=== PATIENT | female | born 1995 | race Caucasian/White ===

== ENCOUNTER 2019-01-12 18:06 | Emergency (ER) | payer OTHER ==
[~2019-01-12] VITALS: Ht 162.6 cm; Wt 61.7 kg
[2019-01-12 18:36] VITALS: BP 118/73; Ht 162.6 cm; Wt 61.7 kg
== END 2019-01-12 20:43 | disposition home or self-care (01) ==
LOC: ED 18:06
DX: R05 Cough (principal); R09.81 Nasal congestion; R07.1 Chest pain on breathing

== ENCOUNTER 2019-03-06 21:18 | Emergency (ER) | payer OTHER ==
[~2019-03-06] VITALS: Ht 160 cm; Wt 67.1 kg
[2019-03-06 21:36] VITALS: Ht 160 cm; Wt 67.1 kg
[2019-03-06 23:40] VITALS: BP 116/68
== END 2019-03-06 23:40 | disposition home or self-care (01) ==
LOC: ED 21:18
DX: S63.613A Unspecified sprain of left middle finger, initial encounter (principal); X58.XXXA Exposure to other specified factors, initial encounter; Y93.89 Activity, other specified; Y92.89 Other specified places as the place of occurrence of the external cause; Y99.8 Other external cause status
CPT/HCPCS: A4570; J7030

== ENCOUNTER 2019-06-05 18:17 | Emergency (ER) | payer OTHER ==
[~2019-06-05] VITALS: Ht 162.6 cm; Wt 65.3 kg
[2019-06-05 18:27] VITALS: BP 121/70; Ht 162.6 cm; Wt 65.3 kg
== END 2019-06-05 20:15 | disposition home or self-care (01) ==
LOC: ED 18:17
DX: O99.611 Diseases of the digestive system complicating pregnancy, first trimester (principal); K92.9 Disease of digestive system, unspecified; R19.7 Diarrhea, unspecified; Z3A.01 Less than 8 weeks gestation of pregnancy; Z90.49 Acquired absence of other specified parts of digestive tract